=== PATIENT | male | born 1995 | race Caucasian/White ===

== ENCOUNTER 2016-09-02 23:19 | Emergency (ER) | payer OTHER, MEDICAID ==
[2016-09-02] MEDS ORDERED: AMOXICILLIN 250 MG CAPSULE PO STA (23:31)
[2016-09-02] MEDS ORDERED: IBUPROFEN 600 MG TABLET PO STA (23:31)
[2016-09-02] MEDS ORDERED: AMOXICILLIN 250 MG CAPSULE PO ONE (23:33)
[2016-09-02] MEDS ORDERED: IBUPROFEN 600 MG TABLET PO ONE (23:33)
== END 2016-09-02 23:42 | disposition home or self-care (01) ==
DX: H66.93 Otitis media, unspecified, bilateral (principal); K21.9 Gastro-esophageal reflux disease without esophagitis; F17.200 Nicotine dependence, unspecified, uncomplicated
CPT/HCPCS: 99283; A9270

== ENCOUNTER 2021-08-25 02:52 | Emergency (ER) | payer MEDICAID, OTHER ==
[2021-08-25] MEDS ORDERED: ONDANSETRON 4 MG/2 ML VIAL IVP STA (03:07)
[2021-08-25] MEDS ORDERED: MORPHINE 2 MG/ML CARPUJECT IVP STA (03:07)
[2021-08-25] MEDS ORDERED: SODIUM CHLORIDE 0.9% 1,000 ML IV STA (03:07)
[2021-08-25] MEDS ORDERED: KETOROLAC 30 MG/ML VIAL IVP STA (03:07)
[2021-08-25 03:15] LABS: BASOPHILS % (AUTO) 0.1 %; HCT - HEMATOCRIT 45.5 % (42.0-52.0); HGB - HEMOGLOBIN 15.7 g/dL (14.0-18.0); LYMPHOCYTES # (AUTO) 0.7 10^3/uL (1.5-3.5); LYMPHOCYTES % (AUTO) 4.3 %; MEAN CORPUSCULAR HEMOGLOBIN 30.4 pg (27.0-31.0); MEAN CORPUSCULAR HGB CONC 34.5 g/dL (32.0-36.0); MEAN CORPUSCULAR VOLUME 88.2 fL (80.0-94.0); MEAN PLATELET VOLUME 9.8 fL (7.4-11.4); MONOCYTES # (AUTO) 0.9 10^3/uL (0.0-1.0); MONOCYTES % (AUTO) 5.7 %; NEUTROPHILS # (AUTO) 14.6 10^3/uL (1.5-6.6); NEUTROPHILS % (AUTO) 89.4 %; PLT - PLATELET COUNT 205 10^3/uL (130-450); RED BLOOD COUNT 5.16 10^6/uL (4.70-6.10); RED CELL DISTRIBUTION WIDTH 12.1 % (12.0-15.0); WHITE BLOOD COUNT 16.4 x10^3/uL (4.8-10.8)
[2021-08-25 03:16] LABS: BILIRUBIN,URINE NEGATIVE (NEGATIVE); GLUCOSE, URINE (UA) NEGATIVE (NEGATIVE); KETONES,URINE (UA) TRACE mg/dL (NEGATIVE); LEUKOCYTE ESTERASE, URINE NEGATIVE (NEGATIVE); NITRITE,URINE NEGATIVE (NEGATIVE); OCCULT BLOOD,URINE NEGATIVE (NEGATIVE); PROTEIN,URINE NEGATIVE (NEGATIVE); UROBILINOGEN,URINE 0.2 (NORMAL) E.U./dL (NORMAL)
[2021-08-25 03:17] LABS: CLARITY,URINE CLEAR (CLEAR)
[2021-08-25 03:28] LABS: ALBUMIN/GLOBULIN RATIO 1.6 (1.0-2.2); BILIRUBIN,TOTAL 0.8 mg/dL (0.2-1.0); CALCIUM 9.3 mg/dL (8.5-10.3); CREATININE 0.7 mg/dL (0.6-1.2); TOTAL PROTEIN 8.1 g/dL (6.7-8.2)
--- NOTE | 2021-08-25 03:48 | ED Physician Documentation ---
PD HPI ABD PAIN - Stated complaint Stated Complaint: LOWER RT BACK PX/SOA - Chief complaint Chief Complaint: Abd Pain - History obtained from History obtained from: Patient - Additional information Additional information: Patient is a 26-year-old male presenting for evaluation of right flank pain with nausea and vomiting that started earlier this morning. Patient reports having nausea and vomiting earlier tonight with few episodes of emesis Consisting of water and Gatorade and then sharp right flank pain is starting at 2:45 AM. He denies history of similar pain. Denies bloody or bilious emesis. Denies hematuria or difficulty with urination. Denies history of kidney stones. Nothing makes his symptoms better or worse. Patient denies history of abdominal surgeries. Denies fever. Review of Systems Constitutional: denies: Fever Nose: denies: Congestion Cardiac: denies: Chest pain / pressure, Palpitations Respiratory: denies: Dyspnea, Cough GI: reports: Abdominal Pain, Nausea, Vomiting. denies: Diarrhea, Bloody / black stool : denies: Dysuria, Hematuria Skin: denies: Rash Musculoskeletal: reports: Back pain, Other (Flank pain right) Neurologic: denies: Headache PD PAST MEDICAL HISTORY - Past Medical History Past Medical History: Yes Cardiovascular: None Respiratory: None Endocrine/Autoimmune: None GI: GERD : None HEENT: None Psych: Anxiety, Panic attacks, Claustrophobia Musculoskeletal: None Derm: None - Past Surgical History Past Surgical History: No - Present Medications Home Medications: Ambulatory Orders Medication Instructions Recorded Confirmed Ondansetron Odt [Zofran] 4 mg TL Q6H PRN #10 tablet 08/25/21 - Allergies Allergies/Adverse Reactions: Allergies Allergy/AdvReac Type Severity Reaction Status Date / Time No Known Drug Allergies Allergy Verified 08/25/21 03:03 - Social History Does the pt smoke?: Yes Smoking Status: Current every day smoker Does the pt drink ETOH?: No Does the pt have substance abuse?: Yes - Immunizations Immunizations are current?: Yes - POLST Patient has POLST: No PD ED PE NORMAL - General General: Alert and oriented X 3, No acute distress, Well developed/nourished - HEENT HEENT: Atraumatic, Moist mucous membranes - Neck Neck: Supple, no meningeal sign - Cardiac Cardiac: RRR, No murmur, Strong equal pulses - Respiratory Respiratory: No respiratory distress, Clear bilaterally - Abdomen Abdomen: Normal bowel sounds, Soft, Non tender, Non distended, No organomegaly - Back Back: No CVA TTP - Derm Derm: Normal color, No rash - Extremities Extremities: No edema - Neuro Neuro: Normal speech - Psych Psych: Normal mood, Normal affect Results - Vitals Vitals: Vital Signs - 24 hr 08/25/21 08/25/21 08/25/21 03:00 03:09 03:40 Temperature 36.9 C Heart Rate 86 101 H 90 Respiratory 24 18 16 Rate Blood Pressure 125/72 130/80 126/57 L O2 Saturation 97 99 100 08/25/21 08/25/21 04:32 06:07 Temperature 36.1 C L 37.0 C Heart Rate 81 77 Respiratory 16 14 Rate Blood Pressure 123/67 105/67 O2 Saturation 99 100 Oxygen O2 Source Room air - Labs Labs: Laboratory Tests 08/25/21 08/25/21 08/25/21 03:12 03:12 03:12 WBC 16.4 H RBC 5.16 Hgb 15.7 Hct 45.5 MCV 88.2 MCH 30.4 MCHC 34.5 RDW 12.1 Plt Count 205 MPV 9.8 Neut # (Auto) 14.6 H Lymph # (Auto) 0.7 L Coleman # (Auto) 0.9 Eos # (Auto) 0.0 Baso # (Auto) 0.0 Absolute Nucleated RBC 0.00 Nucleated RBC % 0.0 Sodium 139 Potassium 4.0 Chloride 101 Carbon Dioxide 25 Anion Gap 13.0 BUN 17 Creatinine 0.7 Estimated GFR (MDRD) 137 Glucose 126 H Calcium 9.3 Total Bilirubin 0.8 AST 21 ALT 20 Alkaline Phosphatase 54 Total Protein 8.1 Albumin 5.0 Globulin 3.1 Albumin/Globulin Ratio 1.6 Lipase 24 Urine Color YELLOW Urine Clarity CLEAR Urine pH 6.0 Ur Specific [place] 1.020 Urine Protein NEGATIVE Urine Glucose (UA) NEGATIVE Urine Ketones TRACE Urine Occult Blood NEGATIVE Urine Nitrite NEGATIVE Urine Bilirubin NEGATIVE Urine Urobilinogen 0.2 (NORMAL) Ur Leukocyte Esterase NEGATIVE Ur Microscopic Review NOT INDICATED Urine Culture Comments NOT INDICATED PD MEDICAL DECISION MAKING - ED course Complexity details: reviewed results, d/w patient, d/w family ED course: 0503 - Patient has been resting comfortably since initial round of medications. On repeat examination, his abdominal exam is benign, there is no reproducible tenderness to the back, patient is able to moveWith less pain and no longer has nausea. Reviewed labs and CT results. If CT is negative for hydronephrosis or nephrolithiasis but does demonstrate hepatomegaly with diffuse hepatic steatos is.I did review these findings with the patient and his mother and they are aware of need for follow-up with her primary care doctor regarding the hepatomegaly. Patient denies any chest pain, difficulty breathing, upper back pain. Do not think he has a dissection. Do not think his symptoms are related to ACS.As repeat abdominal exam is benign and I do not think he needs a repeat CT scan with IV or oral contrast. Patient and his mother are aware of plan for discharge with continuing of supportive care and need for close follow-up. They are also advised on return precautions.. Departure - Departure Disposition: 01 Home, Self Care Clinical Impression: Right flank pain, Hepatomegaly Leukocytosis Qualifiers: Leukocytosis type: unspecified Qualified Code(s): D72.829 - Elevated white blood cell count, unspecified Vomiting Qualifiers: Vomiting type: unspecified Nausea presence: with nausea Qualified Code(s): R11.2 - Nausea with vomiting, unspecified Condition: Stable Instructions: ED Flank Pain Uncertain Cause Prescriptions: Ondansetron Odt [Zofran] 4 mg TL Q6H PRN #10 tablet PRN Reason: Nausea / Vomiting Comments: Dmitriy you are evaluated today for nausea, vomiting and Pain to your right flank. Your lab work was overall reassuring. Your CT scan did not show a kidney stone; but it did show an enlarged liver. Fortunately your blood work today showed that your liver is functioning normally. An enlarged liver could be from many causes including alcohol use or a virus.I would like you to follow-up with a primary care doctor regarding your enlarged liver. You should also avoid alcohol use For the time being. You can follow-up with Dr. Dmitriy Ford MD.I have sent a prescription for nausea medication to the [facility] pharmacy in [place].If it anytime your pain returns, moves locations or worsens or You have continued nausea or vomiting despite the medication, please consider returning to the emergency department. Discharge Date/Time: 08/25/21 06:15
[2021-08-25] MEDS ORDERED: LIDOCAINE PATCH 5% TOP STA (05:54)
[2021-08-25 06:15] VITALS: BP 105/67
--- NOTE | 2021-08-25 10:17 | CT Report ---
PROCEDURE: Abdomen/Pelvis WO INDICATIONS: R flank pain TECHNIQUE: Noncontrast 5 mm thick sections acquired from the diaphragms to the symphysis. 5 mm coronal and sagi ttal reformats were then performed. For radiation dose reduction, the following was used: automated exposure control, adjustment of mA and/or kV according to patient size. COMPARISON: None. FINDINGS: Image quality: Excellent. ABDOMEN: Lung bases: There is right middle lobe scar and atelectasis. Heart size is normal. Solid organs: Liver and spleen are mildly increased in size. Gallbladder is normal. Pancreas is no rmal in contours. No adrenal nodules. Kidneys are normal in size, without hydronephrosis or nephrol ithiasis. Peritoneum and bowel: Unenhanced bowel loops demonstrate normal wall thickness and caliber. No free fluid or air. Nodes and vessels: No retroperitoneal or mesenteric adenopathy by size criteria. Normal appendix. A alphonso and inferior vena cava are normal in caliber. Miscellaneous: No ventral hernias. PELVIS: Genitourinary: Bladder wall thickness is normal. Miscellaneous: No inguinal hernias or adenopathy. Bones: No suspicious bony lesions. No vertebral body compression fractures. IMPRESSION: 1. No renal stone or hydronephrosis. 2. Mild hepatosplenomegaly. No significant discrepancy with the preliminary interpretation. Reviewed by: Aguila Daigle MD on 08/25/2021 10:16 AM PDT Approved by: Aguila Daigle MD on 08/25/2021 10:16 AM PDT Station ID: [id number]
== END 2021-08-25 06:15 | disposition home or self-care (01) ==
LOC: ED 02:52
DX: R10.9 Unspecified abdominal pain (principal); R16.0 Hepatomegaly, not elsewhere classified; D72.829 Elevated white blood cell count, unspecified; R11.2 Nausea with vomiting, unspecified; F17.200 Nicotine dependence, unspecified, uncomplicated
CPT/HCPCS: 36415; 74176; 80053; 81003; 83690; 85025; 96374; 96375; 99284; A9270; 81001; 87086